=== PATIENT | male | born 2000 | race African-American/Black ===

== ENCOUNTER 2021-01-09 05:10 | Emergency (ER) | payer MEDICAID, OTHER ==
[~2021-01-09] VITALS: Ht 177.8 cm; Wt 68.5 kg
[2021-01-09 06:36] VITALS: BP 148/89
[2021-01-09] MEDS ORDERED: IBUPROFEN 800 MG TAB PO ONE (07:30)
== END 2021-01-09 07:30 | disposition home or self-care (01) ==
LOC: ER 05:10
DX: K59.00 Constipation, unspecified (principal); K64.8 Other hemorrhoids